=== PATIENT | female | born 1935 | race Caucasian/White ===

== ENCOUNTER 2018-08-15 14:08 | Emergency (ER) | payer MEDICARE, OTHER ==
[~2018-08-15] VITALS: Ht 157.5 cm; Wt 90.7 kg
[~2018-08-15 14:08] MED LIST: ASPIR-LOW81 MG PO; AVAPRO300 MG PO; B-COMPLEX PLUS1 EACH PO; BACTRIM DS TAB1 EACH PO; FUROSEMIDE 40 M40 M1 PO; GABAPENTIN 100100 MG PO; GLUCOPHAGE1000 MG PO; HYDROCODON-ACE1 EAC7 PO; NOVOLOG MI100 UNIT/M SUBQ; SIMVASTATIN40 MG PO; SYSTANE 0.3-0.1 EACH OPHTHALMIC; SYSTANE LIQUID15 ML OPHTHALMIC; TRAVATAN Z2.5 ML OPHTHALMIC; VITAMIN D-32000 UNIT
[2018-08-15 15:38] LABS: ABSOLUTE BASOPHILS 0.1 thou/uL (0.0-0.2); ABSOLUTE EOSINOPHILS 0.2 thou/uL (0.0-0.7); ABSOLUTE LYMPHOCYTES 1.9 thou/uL (0.8-5.3); ABSOLUTE MONOCYTES 0.9 thou/uL (0.0-1.2); ABSOLUTE NEUTROPHILS 7.3 thou/uL (1.6-8.1); BASOPHILS 0.8 %; EOSINOPHILS 2.4 %; HEMATOCRIT 43.5 % (37.0-47.0); HEMOGLOBIN 15.1 gm/dL (12.0-15.0); LYMPHOCYTES 18.5 %; MCH 30.4 pg (26.0-34.0); MCHC 34.6 g/dL (28.0-37.0); MCV 87.9 fL (80.0-100.0); MONOCYTES 8.2 %; MPV 10.7 fl. (7.2-11.1); NUCLEATED RBCS 0 /100WBC; PLATELET COUNT* 181 thou/uL (150-400); POLYS 70.1 %; RBC 4.95 mil/uL (4.20-5.00); RDW-CV 13.9 % (10.5-14.5); WBC 10.4 thou/uL (4.0-11.0)
[2018-08-15 15:42] LABS: CALCIUM 9.4 mg/dL (8.5-10.1); CREATININE 1.4 mg/dL (0.6-1.3); POTASSIUM 3.7 mmol/L (3.5-5.1)
[2018-08-15 15:47] LABS: ALBUMIN 3.8 g/dL (3.4-5.0); TOTAL BILIRUBIN 0.9 mg/dL (<0.1-1.0); TOTAL PROTEIN 7.4 g/dL (6.4-8.2)
[2018-08-15 16:22] LABS: URINE BILIRUBIN NEGATIVE (Negative); URINE BLOOD NEGATIVE (Negative); URINE COLOR YELLOW; URINE GLUCOSE-RANDOM NEGATIVE (Negative); URINE KETONES NEGATIVE (Negative); URINE PROTEIN NEGATIVE (Negative); URINE SPECIFIC GRAVITY 1.015 (1.005-1.030); URINE UROBILINOGEN 0.2 E.U./dl (0.2-1.0)
[2018-08-15 16:23] LABS: URINE CLARITY CLOUDY; URINE LEUKOCYTES-REFLEX 3+ (Negative); URINE NITRITE-REFLEX POSITIVE (Negative)
[2018-08-15 16:27] LABS: SQUAMOUS >10 Many /LPF (0-3)
[2018-08-15 16:28] LABS: BACTERIA-REFLEX >30 Many /HPF (None Seen); CASTS None Seen /LPF (None Seen); CRYSTALS None Seen /LPF (None Seen); URINE RBC None Seen /HPF (0-2); URINE WBC-REFLEX 6-15 Few /HPF (0-5)
[2018-08-15 18:05] VITALS: BP 171/50
--- NOTE | 2018-08-16 14:15 | EKG ---
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: : 1935 Requested By: Estephania Lu Order Number: [id number] Andrew MD: Ady George Measurements Intervals [place] Rate: 73 P: 15 TX: 157 QRS: -50 QRSD: 133 T: 35 QT: 429 QTc: 473 Interpretive Statements Sinus rhythm RBBB and LAFB Minimal ST elevation, lateral leads Compared to ECG 07/01/2015 22:30:41 Left anterior fascicular block now present Right bundle-branch block now present ST (T wave) deviation now present Electronically Signed On 08-16-2018 14:15:18 EMPLOYMENT PROGRAM REPRESENTATIVE by Ady George [email or web address] <ELECTRONICALLY SIGNED> By: Ady George MD, [facility] 08/16/18 1415 1420 1420 Ady George MD, [facility] /EPI
== END 2018-08-15 18:05 | disposition home or self-care (01) ==
LOC: M.ERS 14:08
PROVIDERS: Personal Emergency Response Attendant
DX: I16.0 Hypertensive urgency (principal); M79.604 Pain in right leg; L53.9 Erythematous condition, unspecified; R60.0 Localized edema; E11.9 Type 2 diabetes mellitus without complications; E78.5 Hyperlipidemia, unspecified; Z90.710 Acquired absence of both cervix and uterus; Z90.49 Acquired absence of other specified parts of digestive tract

== ENCOUNTER → 2018-11-30 | Outpatient (CLI) | payer MEDICARE, OTHER | LOC: M.RAD 15:38 | DX: M51.36 Other intervertebral disc degeneration, lumbar region (principal); M48.061 Spinal stenosis, lumbar region without neurogenic claudication ==

== ENCOUNTER 2018-12-15 16:56 | Emergency (ER) | payer MEDICARE, OTHER ==
[~2018-12-15] VITALS: Ht 157.5 cm; Wt 98.4 kg
[~2018-12-15 16:56] MED LIST changes: -MEDROLDOSEPACK PO; -NORCO 5-325 TA1 EAC1 PO; -TORADOL 10 MG T10 MG PO
[2018-12-15 18:02] LABS: ABSOLUTE BASOPHILS 0.1 thou/uL (0.0-0.2); ABSOLUTE EOSINOPHILS 0.1 thou/uL (0.0-0.7); ABSOLUTE LYMPHOCYTES 3.3 thou/uL (0.8-5.3); ABSOLUTE MONOCYTES 0.8 thou/uL (0.0-1.2); ABSOLUTE NEUTROPHILS 7.9 thou/uL (1.6-8.1); BASOPHILS 0.8 %; EOSINOPHILS 1.2 %; HEMATOCRIT 44.2 % (37.0-47.0); HEMOGLOBIN 14.9 gm/dL (12.0-15.0); LYMPHOCYTES 26.6 %; MCH 29.4 pg (26.0-34.0); MCHC 33.7 g/dL (28.0-37.0); MCV 87.1 fL (80.0-100.0); MONOCYTES 6.8 %; MPV 10.3 fl. (7.2-11.1); NUCLEATED RBCS 0 /100WBC; PLATELET COUNT* 165 thou/uL (150-400); POLYS 64.6 %; RBC 5.08 mil/uL (4.20-5.00); RDW-CV 13.9 % (10.5-14.5); WBC 12.2 thou/uL (4.0-11.0)
[2018-12-15 18:14] LABS: CALCIUM 9.2 mg/dL (8.5-10.1); CREATININE 1.5 mg/dL (0.6-1.3); POTASSIUM 4.3 mmol/L (3.5-5.1)
[2018-12-15 18:19] LABS: TOTAL BILIRUBIN 1.2 mg/dL (<0.1-1.0); TOTAL PROTEIN 7.1 g/dL (6.4-8.2)
[2018-12-15 18:24] LABS: URINE BILIRUBIN NEGATIVE (Negative); URINE BLOOD TRACE (Negative); URINE CLARITY CLEAR; URINE COLOR YELLOW; URINE GLUCOSE-RANDOM NEGATIVE (Negative); URINE KETONES NEGATIVE (Negative); URINE LEUKOCYTES-REFLEX 2+ (Negative); URINE NITRITE-REFLEX POSITIVE (Negative); URINE PROTEIN NEGATIVE (Negative); URINE SPECIFIC GRAVITY <= 1.005 (1.005-1.030); URINE UROBILINOGEN 0.2 E.U./dl (0.2-1.0)
[2018-12-15 18:31] LABS: BACTERIA-REFLEX >30 Many /HPF (None Seen); SQUAMOUS >10 Many /LPF (0-3)
[2018-12-15 18:32] LABS: CASTS None Seen /LPF (None Seen); CRYSTALS None Seen /LPF (None Seen); MUCUS None Seen strn/LPF (None Seen); URINE RBC 0-2 Rare /HPF (0-2)
[2018-12-15] MEDS ORDERED: NORCO 5-325 TA1 EAC1 PO (18:59)
[2018-12-15] MEDS ORDERED: MEDROLDOSEPACK PO (18:59)
[2018-12-15] MEDS ORDERED: TORADOL 10 MG T10 MG PO (18:59)
[2018-12-15 19:02] LABS: ESR (SEDRATE) 4 mm/hr (0-30)
[2018-12-15 19:37] VITALS: BP 161/70
== END 2018-12-15 19:38 | disposition home or self-care (01) ==
LOC: M.ERS 16:56
PROVIDERS: Personal Emergency Response Attendant
DX: M51.36 Other intervertebral disc degeneration, lumbar region (principal); M54.42 Lumbago with sciatica, left side; E11.9 Type 2 diabetes mellitus without complications; I10 Essential (primary) hypertension; E78.5 Hyperlipidemia, unspecified; Z90.710 Acquired absence of both cervix and uterus; Z90.49 Acquired absence of other specified parts of digestive tract; Z79.4 Long term (current) use of insulin

== ENCOUNTER → 2018-12-15 | Outpatient (CLI) | payer MEDICARE, OTHER ==
[~2018-12-15] MED LIST changes: +MEDROLDOSEPACK PO; +NORCO 5-325 TA1 EAC1 PO; +TORADOL 10 MG T10 MG PO
[2018-12-15 14:41] LABS: ABSOLUTE BASOPHILS 0.1 thou/uL (0.0-0.2); ABSOLUTE EOSINOPHILS 0.2 thou/uL (0.0-0.7); ABSOLUTE LYMPHOCYTES 3.3 thou/uL (0.8-5.3); ABSOLUTE MONOCYTES 0.8 thou/uL (0.0-1.2); ABSOLUTE NEUTROPHILS 7.5 thou/uL (1.6-8.1); BASOPHILS 0.6 %; EOSINOPHILS 1.4 %; HEMATOCRIT 45.2 % (37.0-47.0); HEMOGLOBIN 15.2 gm/dL (12.0-15.0); LYMPHOCYTES 27.8 %; MCH 29.5 pg (26.0-34.0); MCHC 33.6 g/dL (28.0-37.0); MCV 87.8 fL (80.0-100.0); MPV 10.5 fl. (7.2-11.1); NUCLEATED RBCS 0 /100WBC; PLATELET COUNT* 171 thou/uL (150-400); POLYS 63.2 %; RBC 5.15 mil/uL (4.20-5.00); RDW-CV 13.9 % (10.5-14.5); WBC 11.8 thou/uL (4.0-11.0)
[2018-12-15 14:46] LABS: URINE BILIRUBIN NEGATIVE (Negative); URINE BLOOD NEGATIVE (Negative); URINE CLARITY CLEAR; URINE COLOR YELLOW; URINE GLUCOSE-RANDOM NEGATIVE (Negative); URINE KETONES NEGATIVE (Negative); URINE LEUKOCYTES-REFLEX 1+ (Negative); URINE PROTEIN NEGATIVE (Negative); URINE SPECIFIC GRAVITY 1.015 (1.005-1.030); URINE UROBILINOGEN 0.2 E.U./dl (0.2-1.0)
[2018-12-15 14:47] LABS: URINE NITRITE-REFLEX POSITIVE (Negative)
[2018-12-15 14:48] LABS: CALCIUM 9.3 mg/dL (8.5-10.1); CREATININE 1.6 mg/dL (0.6-1.3); POTASSIUM 4.6 mmol/L (3.5-5.1)
[2018-12-15 14:51] LABS: ALBUMIN 4.1 g/dL (3.4-5.0); TOTAL BILIRUBIN 1.1 mg/dL (<0.1-1.0); TOTAL PROTEIN 7.8 g/dL (6.4-8.2)
[2018-12-15 14:59] LABS: BACTERIA-REFLEX >30 Many /HPF (None Seen); CASTS None Seen /LPF (None Seen); CRYSTALS None Seen /LPF (None Seen); SQUAMOUS 0-3 Few /LPF (0-3); URINE RBC 0-2 Rare /HPF (0-2)
== END ==
LOC: M.CT 14:06
PROVIDERS: Internal Medicine
DX: N28.1 Cyst of kidney, acquired (principal); R10.33 Periumbilical pain; Z90.710 Acquired absence of both cervix and uterus

== ENCOUNTER 2019-08-17 16:30 | Inpatient (IN) | payer MEDICARE, OTHER ==
[~2019-08-17] VITALS: Ht 157.5 cm; Wt 81.6 kg
[~2019-08-17 16:30] MED LIST changes: +MEDROLDOSEPACK PO; +NORCO 5-325 TA1 EAC1 PO; +TORADOL 10 MG T10 MG PO
[2019-08-17 17:45] LABS: ABSOLUTE BASOPHILS 0.1 thou/uL (0.0-0.2); ABSOLUTE EOSINOPHILS 0.5 thou/uL (0.0-0.7); ABSOLUTE LYMPHOCYTES 3.1 thou/uL (0.8-5.3); ABSOLUTE MONOCYTES 1.2 thou/uL (0.0-1.2); ABSOLUTE NEUTROPHILS 7.5 thou/uL (1.6-8.1); BASOPHILS 0.6 %; EOSINOPHILS 3.9 %; HEMOGLOBIN 13.3 gm/dL (12.0-15.0); LYMPHOCYTES 25.4 %; MCH 29.7 pg (26.0-34.0); MCHC 34.1 g/dL (28.0-37.0); MCV 87.2 fL (80.0-100.0); MONOCYTES 9.5 %; MPV 10.4 fl. (7.2-11.1); NUCLEATED RBCS 0 /100WBC; PLATELET COUNT* 168 thou/uL (150-400); POLYS 60.6 %; RBC 4.48 mil/uL (4.20-5.00); RDW-CV 13.5 % (10.5-14.5); WBC 12.4 thou/uL (4.0-11.0)
[2019-08-17 18:04] LABS: CALCIUM 9.6 mg/dL (8.5-10.1); CREATININE 1.6 mg/dL (0.6-1.3); MAGNESIUM 1.5 mg/dL (1.8-2.4); POTASSIUM 4.4 mmol/L (3.5-5.1)
[2019-08-17 18:24] VITALS: BP 130/53
[2019-08-17 21:50] VITALS: BP 148/75
[2019-08-18 05:39] LABS: URINE BILIRUBIN NEGATIVE (Negative); URINE BLOOD NEGATIVE (Negative); URINE CLARITY CLEAR; URINE COLOR YELLOW; URINE GLUCOSE-RANDOM NEGATIVE (Negative); URINE KETONES NEGATIVE (Negative); URINE LEUKOCYTES-REFLEX 3+ (Negative); URINE NITRITE-REFLEX POSITIVE (Negative); URINE PROTEIN NEGATIVE (Negative); URINE SPECIFIC GRAVITY 1.015 (1.005-1.030); URINE UROBILINOGEN 0.2 E.U./dl (0.2-1.0)
[2019-08-18 05:46] LABS: BACTERIA-REFLEX >30 Many /HPF (None Seen); MUCUS 0-3 Light strn/LPF (None Seen); SQUAMOUS 4-10 Moderate /LPF (0-3); URINE RBC 0-2 Rare /HPF (0-2)
[2019-08-18 05:47] LABS: CASTS None Seen /LPF (None Seen); CRYSTALS None Seen /LPF (None Seen)
--- NOTE | 2019-08-18 05:51 | NUR ---
PT A&O X 4. MEDS GIVEN ORDERED. PAIN MANAGED WITH FENTANYL AND NORCO. PT UP TO BSC WITH 1-2. PT SLEEPING THROUGHOUT THE MOST OF THIS SHIFT. UA SENT TO THE LAB THIS MORNING. ELECTROLYTE REPLACEMENT IN PROGRESS. HOURLY ROUNDING COMPLETED. WILL CONTINUE TO MONITOR.
[2019-08-18 11:20] VITALS: BP 148/58
--- NOTE | 2019-08-18 12:15 | NUR ---
PT. UP IN CHAIR EATING LUNCH. SHE WAS ALERT AND ORIENTED. FORGETTFUL. SHE SAID SHE LIVES AT [facility]. COULD NOT REMEMBER NAME OF APT. UNTIL CM NAMED SOME SR.APTS. NO SERVICES PROVIDED. SHE SAID DAUGHTER IS SUPPORTIVE BUT SHE IS BUSY WITH 3 CHILDREN OF HER OWN. SHE DOES COME AND VACUUM FOR HER,DOES HER LAUDRY AND BRINGS HER GROCERIES. PT.SAID HER SISTER IS SUPPORTIVE TOO BUT IS ONLY 2 YRS YOUNGER THAN HER AND HAS COPD. PT.CANNOT STAND LONG ENOUGH TO COOK HER LEGS HURT. SHE USUALLY MICROWAVES HER MEALS. SHE SAID SHE CAN BATHE HERSELF. SHE DID HAVE TROUBLE WITH FALLING OUT OF HER BED AT NIGHT. WENT TO THE DR. HE CHANGED HER MEDS AND SHE NO LONGER FALLS OUT OF BED. SHE HAS A SIDERAIL ON HER BED,WALKER,WC AND BATH CHAIR. SHE IS CURRENT WITH HOME HEALTH . PER OFFICE, [facility]. SPOKE WITH [facility] [phone], SHE RECEIVES NURSING,PT AND OT. CM WILL FOLLOW.
[2019-08-18 16:11] VITALS: BP 143/74
--- NOTE | 2019-08-18 19:00 | NUR ---
PATIENT PLEASANT AND COOPERATIVE W/ ASSESS AND CARES. PATIENT NOT EATING WELL TODAY, ATE LESS THAN 50% OF EACH MEAL. IV SITE NOTED WNL. REEDUCATED ON HOW TO PROPERLY USE HOME WALKER, SUCH SETTING THE BRAKES WHEN NEEDED AND PROPER TRANSFERS. PATIENT UP TO RECLINER THRU AFTERNOON, BLE ELEVATED. CALL LIGHT IN REACH. DENIES NEEDS CURRENTLY. ~TJRN
[2019-08-18 21:00] VITALS: BP 156/74
[2019-08-19 04:06] LABS: HEMATOCRIT 36.3 % (37.0-47.0); HEMOGLOBIN 12.4 gm/dL (12.0-15.0); MCH 30.2 pg (26.0-34.0); MCHC 34.2 g/dL (28.0-37.0); MCV 88.3 fL (80.0-100.0); MPV 10.6 fl. (7.2-11.1); RBC 4.12 mil/uL (4.20-5.00); RDW-CV 13.4 % (10.5-14.5); WBC 9.4 thou/uL (4.0-11.0)
[2019-08-19 04:16] LABS: CALCIUM 9.1 mg/dL (8.5-10.1); CREATININE 1.8 mg/dL (0.6-1.3); MAGNESIUM 1.6 mg/dL (1.8-2.4); POTASSIUM 3.9 mmol/L (3.5-5.1)
--- NOTE | 2019-08-19 04:54 | NUR ---
PT A&O, FORGERFUL AT TIMES. MEDS GIVEN ORDERED. CHRONIC BACKPAIN MANAGED WITH NORCO. UP TO THE BATHROOM WITH STANDBY ASSIST. PT HAD BM THIS SHIFT. HOURLY ROUNDINGS COMPLETED. WILL CONTINUE TO MONITOR.
[2019-08-19 10:10] VITALS: BP 134/60
--- NOTE | 2019-08-19 12:06 | NUR ---
I have reviewed the documentation by MAKI HERRERA from 08/18/19 to 08/18/19 and I concur with it. KARMA FUENTES
--- NOTE | 2019-08-19 15:53 | NUR ---
PT.HOPES TO GO HOME WITH HOME HEALTH AT DISCHARGE. SHE IS CURRENT WITH [facility]. IF DISCHARGE OVER THE WEEKEND, NOTIFY [facility] AND FAX DISCHARGE ORDERS FOR NURSING /PT/OT. [facility]-[phone].
--- NOTE | 2019-08-19 19:00 | NUR ---
PATIENT ALERT AND ORIENTED THRU SHIFT, PLEASANT AND COOPERATIVE W/ ASSESS AND CARES. SEE MAR. HRLY ROUNDS DONE. IV SITE WNL. FAMILY MEMBERS IN TO SEE THRU PERIODICALLY THRU SHIFT. PATIENT SITTING UP IN RECLINER AT THIS TIME. DENIES NURSING NEEDS. CALL LIGHT IN REACH. REDNESS TO BLE NOTED IMPROVED THIS SHIFT. ~TJRN
[2019-08-19 19:56] VITALS: BP 113/53
--- NOTE | 2019-08-20 06:19 | NUR ---
PATIENT AMBULATING WELL TO RESTROOM. SHE DID HAVE A HEADACHE AT 0145 RECEIVED TYLENOL FOR. SHE DID HAVE SOME NAUSEA THROUGH THE NIGHT AND RECEIVED ZOFRAN 2X. ENCOURAGED SMALL AMT OF FOOD AND LIQUIDS TO HELP ALIEVIATE. KEPT LEGS ELEVATED AND ICE PACKS ON HIP. SHE REQUESTED TO SLEEP IN HER CHAIR FOR COMFORT. PLAN IS TO CONTINUE IV ABX AND FOLLOW CULTURES. WILL CONTINUE TO FOLLOW PLAN OF CARE.
[2019-08-20] MEDS ORDERED: KEFLEX500 M1 PO (08:41)
[2019-08-20] MEDS ORDERED: FLORASTOR250 MG PO (08:41)
[2019-08-20] MEDS ORDERED: VOLTAREN GEL 1100 G1 TOP (08:41)
[2019-08-20] MEDS ORDERED: GABAPENTIN 100100 MG PO (08:41)
[2019-08-20 08:45] VITALS: BP 152/59
[2019-08-20 11:12] VITALS: BP 152/59
[2019-08-20 11:43] VITALS: BP 152/59
[2019-08-20 11:54] VITALS: BP 152/59
--- NOTE | 2019-08-20 12:50 | NUR ---
PATIENT DISCHARGED FROM UNIT AT 1238. ALERT AND ORIENTED X 4. VITAL SIGNS STABLE ON ROOM AIR. UP WITH ASSISTANCE, GAIT BELT, AND WALKER. IV DISCONTINUED. DENIES PAIN AND NAUSEA AT THIS TIME. DISCHARGE INSTRUCTIONS AND MEDICATION INFORMATION GIVEN TO PATIENT. LEFT WITH ALL BELONGINGS. PATIENT LEFT WITH DAUGHTER VIA CAR.
[2019-08-20 12:53] VITALS: BP 152/59
[2019-08-22 10:20] VITALS: BP 152/59
--- NOTE | 2019-08-22 10:28 | NUR ---
FAXED REFERRAL TO [facility]. WILL CONFIRM WITH [facility] THAT THEY RECEIVED AND NOTIFY THEM PATIENT DISCHARGED ON 08/20/19. [phone]; [facility] [phone]; [phone]
== END 2019-08-20 12:38 | disposition home health service (06) | DRG 603 ==
LOC: M.ORTHSURG 16:30
PROVIDERS: ADMIT Internal Medicine
DX: L03.115 Cellulitis of right lower limb (principal); R65.10 Systemic inflammatory response syndrome (SIRS) of non-infectious origin without acute organ dysfunction; I12.9 Hypertensive chronic kidney disease with stage 1 through stage 4 chronic kidney disease, or unspecified chronic kidney disease; N18.3 Chronic kidney disease, stage 3 (moderate); I87.8 Other specified disorders of veins; E11.22 Type 2 diabetes mellitus with diabetic chronic kidney disease; E66.9 Obesity, unspecified; E78.5 Hyperlipidemia, unspecified; H40.9 Unspecified glaucoma; M47.899 Other spondylosis, site unspecified; M16.10 Unilateral primary osteoarthritis, unspecified hip; G47.33 Obstructive sleep apnea (adult) (pediatric); E11.40 Type 2 diabetes mellitus with diabetic neuropathy, unspecified; N30.90 Cystitis, unspecified without hematuria; B96.20 Unspecified Escherichia coli [E. coli] as the cause of diseases classified elsewhere; Z68.32 Body mass index [BMI] 32.0-32.9, adult; Z79.82 Long term (current) use of aspirin; Z79.891 Long term (current) use of opiate analgesic; Z79.899 Other long term (current) drug therapy; Z79.84 Long term (current) use of oral hypoglycemic drugs; Z90.710 Acquired absence of both cervix and uterus; Z90.49 Acquired absence of other specified parts of digestive tract; Z98.1 Arthrodesis status; Z90.89 Acquired absence of other organs

== ENCOUNTER 2019-09-02 11:48 | Emergency (ER) | payer MEDICARE, OTHER ==
[~2019-09-02] VITALS: Ht 157.5 cm; Wt 95.3 kg
[~2019-09-02 11:48] MED LIST changes: +FLORASTOR250 MG PO; +KEFLEX500 M1 PO; +VOLTAREN GEL 1100 G1 TOP
[2019-09-02] MEDS ORDERED: VITAMIN B-121000 MC2 SUBLING (12:04)
[2019-09-02 12:40] LABS: ABSOLUTE BASOPHILS 0.1 thou/uL (0.0-0.2); ABSOLUTE EOSINOPHILS 0.2 thou/uL (0.0-0.7); ABSOLUTE LYMPHOCYTES 2.6 thou/uL (0.8-5.3); ABSOLUTE MONOCYTES 0.9 thou/uL (0.0-1.2); ABSOLUTE NEUTROPHILS 5.4 thou/uL (1.6-8.1); BASOPHILS 0.6 %; EOSINOPHILS 2.3 %; HEMATOCRIT 38.5 % (37.0-47.0); HEMOGLOBIN 13.2 gm/dL (12.0-15.0); LYMPHOCYTES 28.4 %; MCH 30.5 pg (26.0-34.0); MCHC 34.3 g/dL (28.0-37.0); MCV 88.9 fL (80.0-100.0); MONOCYTES 9.4 %; MPV 9.5 fl. (7.2-11.1); NUCLEATED RBCS 0 /100WBC; PLATELET COUNT* 200 thou/uL (150-400); POLYS 59.3 %; RBC 4.33 mil/uL (4.20-5.00); RDW-CV 14.1 % (10.5-14.5); WBC 9.2 thou/uL (4.0-11.0)
[2019-09-02 12:49] LABS: CALCIUM 8.9 mg/dL (8.5-10.1); CREATININE 1.5 mg/dL (0.6-1.3); POTASSIUM 4.1 mmol/L (3.5-5.1)
[2019-09-02 12:53] LABS: ALBUMIN 3.7 g/dL (3.4-5.0); TOTAL BILIRUBIN 1.5 mg/dL (<0.1-1.0); TOTAL PROTEIN 7.2 g/dL (6.4-8.2)
[2019-09-02 13:03] LABS: URINE BILIRUBIN NEGATIVE (Negative); URINE BLOOD NEGATIVE (Negative); URINE CLARITY CLEAR; URINE COLOR YELLOW; URINE GLUCOSE-RANDOM NEGATIVE (Negative); URINE KETONES NEGATIVE (Negative); URINE NITRITE-REFLEX NEGATIVE (Negative); URINE PROTEIN NEGATIVE (Negative); URINE SPECIFIC GRAVITY 1.015 (1.005-1.030); URINE UROBILINOGEN 0.2 E.U./dl (0.2-1.0)
[2019-09-02 13:04] LABS: URINE LEUKOCYTES-REFLEX 2+ (Negative)
[2019-09-02 13:10] LABS: BACTERIA-REFLEX 1-9 Few /HPF (None Seen); CRYSTALS None Seen /LPF (None Seen); HYALINE CASTS 0-3 Few /LPF (None Seen); MUCUS 0-3 Light strn/LPF (None Seen); SQUAMOUS 0-3 Few /LPF (0-3); URINE RBC 0-2 Rare /HPF (0-2); URINE WBC-REFLEX 6-15 Few /HPF (0-5); YEAST-REFLEX Present (None Seen)
[2019-09-02] MEDS ORDERED: KEFLEX500 M2 PO (13:21)
[2019-09-02 14:11] VITALS: BP 156/65
== END 2019-09-02 14:11 | disposition home or self-care (01) ==
LOC: M.ERS 11:48
PROVIDERS: Emergency Medicine
DX: N39.0 Urinary tract infection, site not specified (principal); M54.5 Low back pain; I10 Essential (primary) hypertension; E11.40 Type 2 diabetes mellitus with diabetic neuropathy, unspecified; E78.5 Hyperlipidemia, unspecified; E66.9 Obesity, unspecified; Z68.38 Body mass index [BMI] 38.0-38.9, adult; Z90.710 Acquired absence of both cervix and uterus; Z90.49 Acquired absence of other specified parts of digestive tract; Z79.4 Long term (current) use of insulin

== ENCOUNTER 2020-11-29 09:50 | Emergency (ER) | payer MEDICARE, OTHER ==
[~2020-11-29] VITALS: Ht 160 cm; Wt 94.8 kg
[~2020-11-29 09:50] MED LIST changes: +KEFLEX500 M2 PO; +VITAMIN B-121000 MC2 SUBLING
[2020-11-29 10:21] LABS: ABSOLUTE BASOPHILS 0.1 thou/uL (0.0-0.2); ABSOLUTE EOSINOPHILS 0.2 thou/uL (0.0-0.7); ABSOLUTE LYMPHOCYTES 2.5 thou/uL (0.8-5.3); ABSOLUTE MONOCYTES 0.7 thou/uL (0.0-1.2); ABSOLUTE NEUTROPHILS 6.1 thou/uL (1.6-8.1); BASOPHILS 0.7 %; EOSINOPHILS 2.6 %; HEMATOCRIT 44.7 % (37.0-47.0); HEMOGLOBIN 15.3 gm/dL (12.0-15.0); LYMPHOCYTES 25.7 %; MCHC 34.2 g/dL (28.0-37.0); MCV 87.9 fL (80.0-100.0); MONOCYTES 7.6 %; MPV 9.8 fl. (7.2-11.1); NUCLEATED RBCS 0 /100WBC; PLATELET COUNT* 162 thou/uL (150-400); POLYS 63.4 %; RBC 5.09 mil/uL (4.20-5.00); RDW-CV 13.8 % (10.5-14.5); WBC 9.6 thou/uL (4.0-11.0)
[2020-11-29 10:31] LABS: CALCIUM 9.6 mg/dL (8.5-10.1); CREATININE 1.2 mg/dL (0.6-1.3); POTASSIUM 4.2 mmol/L (3.5-5.1)
[2020-11-29 10:42] LABS: ALBUMIN 4.1 g/dL (3.4-5.0); TOTAL BILIRUBIN 1.8 mg/dL (<0.1-1.0); TOTAL PROTEIN 7.7 g/dL (6.4-8.2)
[2020-11-29] MEDS ORDERED: VENTOLIN HFA 1818 GM INH (12:22)
[2020-11-29] MEDS ORDERED: TESSALON PERLE100 M1 PO (12:22)
[2020-11-29 12:41] VITALS: BP 186/75
--- NOTE | 2020-11-29 15:19 | EKG ---
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
== END 2020-11-29 12:42 | disposition home or self-care (01) ==
LOC: M.ERS 09:50
PROVIDERS: Emergency Medicine Emergency Medical Services
DX: J40 Bronchitis, not specified as acute or chronic (principal); E66.9 Obesity, unspecified; E78.5 Hyperlipidemia, unspecified; E11.40 Type 2 diabetes mellitus with diabetic neuropathy, unspecified; Z79.899 Other long term (current) drug therapy; Z79.82 Long term (current) use of aspirin; Z79.4 Long term (current) use of insulin

== ENCOUNTER → 2020-12-18 | Outpatient (CLI) | payer MEDICARE, OTHER ==
[~2020-12-18] MED LIST changes: +TESSALON PERLE100 M1 PO; +VENTOLIN HFA 1818 GM INH
== END ==
LOC: M.RAD 13:54
PROVIDERS: ATTEND Orthopaedic Surgery
DX: M11.261 Other chondrocalcinosis, right knee (principal); M25.561 Pain in right knee; M25.461 Effusion, right knee; M25.761 Osteophyte, right knee